=== PATIENT | male | born 1975 | race Caucasian/White ===

== ENCOUNTER → 2019-10-28 10:13 | Outpatient (BNVA) | payer OTHER, SELFPAY | PROVIDERS: Family Provider Nurse Practitioner; Visit Provider Nurse Practitioner | DX: R07.89 Other chest pain (principal) | CPT/HCPCS: 80053; 80061; 81000; 84484; 85025 ==

== ENCOUNTER 2020-03-02 10:10 | Outpatient (CLI) | payer OTHER, SELFPAY ==
--- NOTE | 2020-03-02 | USCV_ITS ---
Javier Ochoa Age: 44 Gender: M : 1975 Exam Date: 03/02/2020 10:27 Ordering Phys: Fidelia Lester MD ([email or web address]) Technologist: Pa Noe [place] [facility] [place]: Chest pain Rhythm: Sinus Patient History: DLD Cardiac Medications: Statin Medications in past 24 hours: None Contrast: Stress Results Protocol: Nilson Total dose(mL): Exercise Duration (min:sec): 11:33 METS: 13.5 Resting HR: 70 Resting BP: 130 / 77 Peak HR: 160 Peak BP: 193 / 85 Max Predicted HR: 177 90 % Max Predicted HR Target HR: 150 Double Product: 34262 Stress Summary: The patient's target heart rate was achieved The hemodynamic response to exercise was normal BP Response: Normal Reason for Termination: Test terminated after reaching target heart rate (85% max predicted) Cardiac Symptoms: None ECG Analysis Resting ECG: Please see separate report Stress ECG: Please see separate report Arrhythmia: Please see separate report MEASUREMENTS (Male/Female) Normal Values FINDINGS The baseline echocardiogram revealed normal LV size and ejection fraction. No severe wall motion of normalities. The aortic and mitral valve morphology appears to be within normal limits. Aortic root appears of normal size.The peak exercise, there was good augmentation of all the segments with no exercise-induced wall motion of normalities. CONCLUSIONS 1. Normal echocardiographic response to treadmill exercise. 2. No exercise-induced chest pain or cardiac arrhythmia. 3. Low probability for coronary ischemia, based on the above findings Dr Fidelia Lester MD [facility] (Electronically Signed) Final Date: 02 March 2020 16:07 S
--- NOTE | 2020-03-02 10:31 | ECG_ITS ---
[facility] Test Date: 2020-03-02 Pat Name: Javier Ochoa Department: Room: Gender: Male [employer] Processor: Cecile Magallanes : 1975 Requested By: Fidelia Lester Order Number: [id number] Shin MD: Fidelia Lester M.D. Interpretive Statements NAME OF STUDY: TREADMILL STRESS ECHOCARDIOGRAM INDICATION: Chest Pain, PROCEDURE: At the baseline, the patient's blood pressure was with a heart rate of. The baseline electrocardiogram showed normal sinus rhythm with right bundle branch block pattern. No significant ST-T changes. The patient exercised for 1 minutes and 337 seconds on a standard Nilson protocol. Patient attained a maximum heart rate of 160 beats per minute(90% of the maximum predicted heart rate) with a blood pressure at the peak exercise of 137/65 mm Hg. The EKG at the peak exercise revealed no significant changes. Patient did not have any chest pain or any significant cardiac arrhythmias with the exercise During the recovery phase, there were no new changes. Blood pressure at the end of the recovery phase was 140/78 mm Hg with a heart rate of 96 per minute. CONCLUSION: 1. Normal EKG response to treadmill exercise 2. No exercise-induced chest pain or cardiac arrhythmia 3. Fair exercise tolerance, attained a maximum of 13.5 METs Electronically Signed On 03-02-2020 21:17:43 CDT by Fidelia Lester M.D. [id number]
[2020-03-02 10:32] VITALS: BMI 25.0
[2020-03-02 10:56] VITALS: BP 137/65; PULSE 89
== END 2020-03-02 10:11 | disposition home or self-care (01) ==
PROVIDERS: PCP Nurse Practitioner; Visit Provider Internal Medicine Cardiovascular Disease
DX: R07.9 Chest pain, unspecified (principal)
CPT/HCPCS: 93017; 93350

== ENCOUNTER → 2020-03-28 08:02 | Outpatient (BNVA) | payer OTHER, SELFPAY | PROVIDERS: PCP Nurse Practitioner; Visit Provider Nurse Practitioner | DX: E78.2 Mixed hyperlipidemia (principal) | CPT/HCPCS: 80053; 80061 ==

== ENCOUNTER → 2021-08-26 10:04 | Outpatient (BNVA) | payer OTHER, SELFPAY | PROVIDERS: PCP Nurse Practitioner; Visit Provider Nurse Practitioner | DX: E78.2 Mixed hyperlipidemia (principal) | CPT/HCPCS: 80053; 80061 ==

== ENCOUNTER 2021-11-19 09:24 | Outpatient (CLI) | payer OTHER, SELFPAY ==
--- NOTE | 2021-11-19 09:40 | MR_ITS ---
WS: [id number] MRI HEAD WITH CONTRAST WITH ATTENTION TO THE INTERNAL AUDITORY CANALS TECHNIQUE: Sagittal T1, T2 axial, T2 axial flair, axial susceptibility weighted imaging, axial diffus ion weighted images, and coronal T2 images were obtained. Pre and post T1 axial and post T1 coronal i mages. ADC and FSPGR images. Post gadolinium images with attention to the internal auditory canals. A xial fiesta imaging. CLINICAL INFORMATION: LABYRINTHITIS,R EAR/HEARING LOSS,R EAR/TINNITUS BILATERAL COMPARISON: None. FINDINGS: No evidence of restricted diffusion to suggest acute ischemia. Ventricular system and basal cisterns are patent. Mild supratentorial white matter changes nonspecific in a patient this age but can be see n with hypertension, diabetes, small vessel disease, and migraine headaches. No significant parenchym al volume loss. Normal posterior fossa. Normal vascular flow voids at the skull base. No extra-axial fluid collections. No evidence of mass or mass effect. Paranasal sinuses and mastoid air cells are we ll aerated. Visualized orbits are normal. No hemosiderin on the susceptibly weighted images. Proximal 7th and 8th cranial nerves are normal in appearance. No evidence of enhancing IAC or CP angle mass. Normal trigeminal nerve root entry zones. No abnormal gadolinium enhancement. Normal dural venous sinuses. Normal optic chiasm and pituitary in fundibulum. MR/MR iac's wo/w con* [id number] IMPRESSION: 1. No evidence of restricted diffusion to suggest acute ischemia. 2. Mild supratentorial white matter changes nonspecific in a patient this age but can be seen with hypertension, diabetes, small vessel disease, and migraine headaches. 3. Paranasal sinuses and mastoid air cells well aerated. 4. Proximal 7th and 8th cranial nerves are normal in appearance. No evidence o f enhancing IAC or CP angle mass. 5. No abnormal intracranial enhancement. 6. No other significant findings.
== END 2021-11-19 09:25 | disposition home or self-care (01) ==
LOC: RAD 09:24
PROVIDERS: PCP Nurse Practitioner; Visit Provider Otolaryngology
DX: H83.01 Labyrinthitis, right ear (principal)
CPT/HCPCS: 70553

== ENCOUNTER → 2022-07-28 11:37 | Outpatient (BNVA) | payer OTHER, SELFPAY | PROVIDERS: PCP Nurse Practitioner; Visit Provider Nurse Practitioner | DX: E78.2 Mixed hyperlipidemia (principal) | CPT/HCPCS: 80053; 80061 ==

== ENCOUNTER → 2023-03-09 13:13 | Outpatient (BNVA) | payer OTHER, SELFPAY | PROVIDERS: PCP Nurse Practitioner; Visit Provider Nurse Practitioner | DX: E78.2 Mixed hyperlipidemia (principal) | CPT/HCPCS: 80053; 80061 ==

== ENCOUNTER → 2023-09-30 09:35 | Outpatient (BNVA) | payer OTHER, SELFPAY | PROVIDERS: PCP Nurse Practitioner; Visit Provider Nurse Practitioner | DX: Z12.5 Encounter for screening for malignant neoplasm of prostate (principal); E78.2 Mixed hyperlipidemia | CPT/HCPCS: 80053; 80061; G0103 ==

== ENCOUNTER → 2024-03-24 15:25 | Outpatient (BNVA) | payer OTHER, SELFPAY | PROVIDERS: PCP Nurse Practitioner; Visit Provider Nurse Practitioner | DX: E78.2 Mixed hyperlipidemia (principal) | CPT/HCPCS: 80053; 80061; 82306; 82607; 83735 ==

== ENCOUNTER → 2024-08-29 11:48 | Outpatient (BNVA) | payer OTHER, SELFPAY | PROVIDERS: PCP Nurse Practitioner; Visit Provider Nurse Practitioner | DX: E78.2 Mixed hyperlipidemia (principal) | CPT/HCPCS: 80053; 80061 ==

== ENCOUNTER → 2025-03-08 10:45 | Outpatient (BNVA) | payer OTHER, SELFPAY | PROVIDERS: PCP Nurse Practitioner; Visit Provider Nurse Practitioner | DX: E55.9 Vitamin D deficiency, unspecified (principal); E78.2 Mixed hyperlipidemia | CPT/HCPCS: 80053; 80061; 82306; 84403; G0103 ==